=== PATIENT | male | born 1960 | race Caucasian/White ===

== ENCOUNTER 2017-05-10 14:15 | Emergency (ER) | payer OTHER ==
[2017-05-10 14:40] VITALS: BP 149/92; PULSE 82; TEMP 98.7; BMI 32.3
[2017-05-10] MEDS ORDERED: SODIUM CHLORIDE 1,000 ML IV STA (14:56)
--- NOTE | 2017-05-10 14:56 | PDOC ---
History of Present Illness - General History Source: Patient Exam Limitations: No Limitations - History of Present Illness Initial Comments: 05/10/17 15:02 The patient is a 56 year old male, with a significant past medical history of hypothyroidism, who presents to the emergency department with, three days of right sided flank pain. The patient describes his flank pain as waxing and waning and ranking a 10/10 at worse. He reports the pain to worsen when he is laying down. The patient reports taking Advil, with minimal relief. He denies any recent injury. He denies any recent fevers, chills, headache or dizziness. He denies any recent nausea, vomit, diarrhea or constipation. He denies any recent chest pain or shortness of breath. He denies any recent dysuria, frequency, urgency or hematuria. Allergies: NKA Social History: Nonsmoker. Denies EtOH use and recreational drug use. Familial History: Maternal Hodgkins Primary Care Physician: Dr. Ahmet Lucas <Luci Watt - Last Filed: 05/10/17 15:58> <Enrique Martin - Last Filed: 05/10/17 16:50> - General Chief Complaint: Back Pain Stated Complaint: RT SIDED BACK PAIN Time Seen by Provider: 05/10/17 14:49 Past History <Luci Watt - Last Filed: 05/10/17 15:58> - Past Medical History COPD: No Thyroid Disease: Yes (HYPOTHYROIDISM) - Immunization History Td Vaccination: Yes Immunization Up to Date: Yes - Suicide/Smoking/Psychosocial Hx Smoking Status: No Smoking History: Never smoked Have you smoked in the past 12 months: No Number of Cigarettes Smoked Daily: 0 Hx Alcohol Use: No <Enrique Martin - Last Filed: 05/10/17 16:50> - Past Medical History Allergies/Adverse Reactions: Allergies Allergy/AdvReac Type Severity Reaction Status Date / Time No Known Allergies Allergy Verified 05/10/17 14:18 Home Medications: Ambulatory Orders Levothyroxine [Synthroid] 120 mcg PO DAILY 04/23/11 Review of Systems - Review of Systems Able to Perform ROS?: Yes Comments:: 05/10/17 15:02 CONSTITUTIONAL: Absent: fever, no chills, no fatigue EYES: Absent: visual changes ENT: Absent: ear pain, no sore throat CARDIOVASCULAR: Absent: chest pain, no palpitations RESPIRATORY: Absent: cough, no SOB GI: Absent: abdominal pain, no nausea, no vomiting, no constipation, no diarrhea GENITOURINARY: Present: +Right side flank pain. Absent: dysuria, no frequency, no hematuria MUSKULOSKELETAL: Absent: no arthralgia, no myalgia SKIN: Absent: rash NEURO: Absent: headache All Other Systems: Reviewed and Negative <Luci Watt - Last Filed: 05/10/17 15:58> *Physical Exam - Vital Signs Last Vital Signs Temp Pulse Resp BP Pulse Ox 98.7 F 82 18 149/92 96 05/10/17 14:15 05/10/17 14:15 05/10/17 14:15 05/10/17 14:15 05/10/17 14:15 - Physical Exam Comments: 05/10/17 15:58 GENERAL: Well developed, well nourished. Awake and alert. No acute distress. HEENT: Normocephalic, atraumatic. PERRLA, EOMI. No conjunctival pallor. Sclera are non- icteric. Moist mucous membranes. Oropharynx is clear. NECK: Supple. Full ROM. No JVD. Carotid pulses 2+ and symmetric, without bruits. No thyromegaly. No lymphadenopathy. CARDIOVASCULAR: Regular rate and rhythm. No murmurs, rubs, or gallops. Distal pulses are 2+ and symmetric. PULMONARY: No evidence of respiratory distress. Lungs clear to auscultation bilaterally. No wheezing, rales or rhonchi. ABDOMINAL: Soft. Non-tender. Non-distended. No rebound or guarding. No organomegaly. Normoactive bowel sounds. MUSCULOSKELETAL Normal range of motion at all joints. No bony deformities or tenderness. No CVA tenderness. EXTREMITIES: No cyanosis. No clubbing. No edema. No calf tenderness. SKIN: Warm and dry. Normal capillary refill. No rashes. No jaundice. NEUROLOGICAL: Alert, awake, appropriate. Cranial nerves 2-12 intact. No deficits to light touch and temperature in face, upper extremities and lower extremities. No motor deficits in the in face, upper extremities and lower extremities. Normoreflexic in the upper and lower extremities. Normal speech. Toes are down- going bilaterally. Gait is normal without ataxia. PSYCHIATRIC: Cooperative. Good eye contact. Appropriate mood and affect. <Luci Watt - Last Filed: 05/10/17 15:58> - Vital Signs Last Vital Signs Temp Pulse Resp BP Pulse Ox 98.7 F 82 18 149/92 96 05/10/17 14:15 05/10/17 14:15 05/10/17 14:15 05/10/17 14:15 05/10/17 14:15 <Enrique Martin - Last Filed: 05/10/17 16:50> ED Treatment Course - LABORATORY CBC & Chemistry Diagram: 05/10/17 15:15 05/10/17 15:15 <Luci Watt - Last Filed: 05/10/17 15:58> - LABORATORY CBC & Chemistry Diagram: 05/10/17 15:15 05/10/17 15:15 <Enrique Martin - Last Filed: 05/10/17 16:50> Medical Decision Making - Medical Decision Making 05/10/17 15:10 Patient with severe right flank pain, intermittent, since Thursday. 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 History of a kidney stone in the distant past which passed spontaneously. No urinary tract symptoms. History is suggestive of a recurrent renal colic. Abdominal exam is entirely negative. Labs and CT pending. 05/10/17 15:11 05/10/17 16:37 Laboratories with no significant abnormalities, including a normal white count, normal renal function, and clear urine CT studies pending 05/10/17 16:47 CT is negative for kidney stone or other acute abdominal or pelvic disease Patient's pain is much improved after the administration of Toradol. This is likely due to a back strain, muscular or facet joint pain. The patient is advised to rest and avoid strenuous physical activity use heat and prescribed medication, and if no improvement follow-up with multimedia authoring specialist. Referred to Dr. De Jesus. Discharged in no severe pain or other distress to follow-up as directed. <Enrique Martin - Last Filed: 05/10/17 16:50> *DC/Admit/Observation/Transfer - Attestations Scribe Attestion: 05/10/17 15:02 Documentation prepared by Nirvannie Goberdan, acting as bio medical technician for Enrique Fox MD. <Luci Watt - Last Filed: 05/10/17 15:58> - Discharge Dispostion Admit: No <Enrique Martin - Last Filed: 05/10/17 16:50> Diagnosis at time of Disposition: Back strain Qualifiers: Encounter type: initial encounter Qualified Code(s): S39.012A - Strain of muscle, fascia and tendon of lower back, initial encounter - Discharge Dispostion Disposition: HOME Condition at time of disposition: Improved - Referrals Referrals: Javon De Jesus MD [Staff Physician] - - Patient Instructions Printed Discharge Instructions: DI for Back Strain or Sprain Additional Instructions: No evidence of a kidney stone or other significant intra-abdominal or pelvic disease. Most likely this is mechanical back pain due to overuse. Rest, heat, avoid strenuous physical activity until pain resolved. Medication as directed. Consider consulting Back Specialist if pain persists. Also physical therapy may be helpful. - Post Discharge Activity
[2017-05-10] MEDS ORDERED: KETOROLAC TROMETHAMINE 30 MG/1 ML VIAL IVPUSH ONE (14:57)
[2017-05-10] MEDS ORDERED: ONDANSETRON 4 MG/2 ML VIAL IVPB ONE (14:57)
[2017-05-10] MEDS ORDERED: KETOROLAC TROMETHAMINE 30 MG/1 ML VIAL ONE (15:03)
[2017-05-10] MEDS ORDERED: ONDANSETRON 4 MG/2 ML VIAL ONE (15:03)
[2017-05-10 15:29] LABS: BASO % 1.3 % (0-2.0); HEMATOCRIT 44.2 % (35.4-49); HEMOGLOBIN 14.5 GM/dl (11.7-16.9); LYMPH % 29.8 % (8-40); MCH 28.7 pg (25.7-33.7); MCHC 32.8 g/dl (32.0-35.9); MEAN CELL VOLUME 87.4 fl (80-96); MEAN PLT VOLUME 8.9 fl (7.5-11.1); MONO % 7.7 % (3.8-10.2); NEUT % 59.2 % (42.8-82.8); PLATELET COUNT 278 K/MM3 (134-434); RBC 5.05 M/mm3 (4.00-5.60); RDW 12.4 % (11.9-15.9); WHITE BLOOD COUNT 6.6 K/mm3 (4.0-10.8)
[2017-05-10 15:51] LABS: ALK PHOS 73 U/L (32-92); ANION GAP 7 (8-16); BILIRUBIN,TOTAL 0.7 mg/dl (0.2-1.0); BLOOD UREA NITROGEN 14 mg/dl (7-18); CALCIUM 9.1 mg/dl (8.4-10.2); CHLORIDE 101 mmol/L (98-107); CO2 28 mmol/L (22-28); CREATININE 0.9 mg/dl (0.6-1.3); GLUCOSE,RANDOM 95 mg/dl (74-106); POTASSIUM 4.4 mmol/L (3.5-5.1); SGOT/AST 19 U/L (10-42); SGPT/ALT 28 U/L (10-40); SODIUM 136 mmol/L (136-145); TOT PROT 7.8 g/dl (6.4-8.3)
[2017-05-10 16:16] LABS: URINE APPEARANCE Clear; URINE BILIRUBIN Negative (NEGATIVE); URINE BLOOD Negative (NEGATIVE); URINE COLOR YELLOW; URINE GLUCOSE (UA) Negative (NEGATIVE); URINE KETONE Negative (NEGATIVE); URINE LEUK ESTERASE Negative (NEGATIVE); URINE NITRITE Negative (NEGATIVE); URINE PROTEIN Negative (NEGATIVE); URINE UROBILINOGEN 0.2 (0.2-1.0)
== END 2017-05-10 17:05 | disposition home or self-care (01) ==
LOC: FER 14:15
PROC: 3E0333Z Introduction of Anti-inflammatory into Peripheral Vein, Percutaneous Approach (ICD-10-PCS; principal; 2017-05-10)
PROC: 3E033GC Introduction of Other Therapeutic Substance into Peripheral Vein, Percutaneous Approach (ICD-10-PCS; 2017-05-10)
PROC: 3E0337Z Introduction of Electrolytic and Water Balance Substance into Peripheral Vein, Percutaneous Approach (ICD-10-PCS; 2017-05-10)
DX: S39.012A Strain of muscle, fascia and tendon of lower back, initial encounter (principal); X58.XXXA Exposure to other specified factors, initial encounter; Y93.89 Activity, other specified; Y92.9 Unspecified place or not applicable; E03.9 Hypothyroidism, unspecified
CPT/HCPCS: 36415; 74176; 80053; 81003; 85025; 99285-25; J7030

== ENCOUNTER 2019-01-02 20:50 | Emergency (ER) | payer OTHER ==
[2019-01-02 21:06] VITALS: BP 138/97; PULSE 74; TEMP 97.9; BMI 33.3
[2019-01-02] MEDS ORDERED: LIDOCAINE HCL 2% (50ML VIAL) SQ ONE (21:12)
[2019-01-02] MEDS ORDERED: LIDOCAINE HCL 2% (20ML MULTI-DOSE VIAL) NR ONE (21:12)
[2019-01-02] MEDS ORDERED: DIPHTH,PERTUSS(ACELL),TET 0.5 ML DISP.SYRIN IM ONE (21:36)
--- NOTE | 2019-01-02 22:46 | PDOC ---
Documentation entered by Jeannie Pinto SCRIBE, acting as scribe for Simon Reardon MD. Simon Reardon MD: This documentation has been prepared by the scribe, Jeannie Pinto SCRIBE, under my direction and personally reviewed by me in its entirety. I confirm that the documentation accurately reflects all work, treatment, procedures, and medical decision making performed by me. History of Present Illness - General Chief Complaint: Laceration Stated Complaint: LACERATION RIGHT HAND History Source: Patient Exam Limitations: No Limitations - History of Present Illness Initial Comments: 01/02/19 21:14 The patient is a 58-year-old male with a past medical history significant for hypothyroidism, who presents to the emergency department with a laceration to the right hand. 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 Denies numbness or tingling. The patient says his last tetanus shot was in 2010. Past History - Past Medical History Allergies/Adverse Reactions: Allergies Allergy/AdvReac Type Severity Reaction Status Date / Time No Known Allergies Allergy Verified 01/02/19 20:52 Home Medications: Ambulatory Orders Levothyroxine [Synthroid -] 120 mcg PO DAILY 04/23/11 COPD: No Thyroid Disease: Yes (HYPOTHYROIDISM) - Immunization History Td Vaccination: Yes (2010) Immunization Up to Date: Yes - Psycho Social/Smoking Cessation Hx Smoking Status: No Smoking History: Never smoked Have you smoked in the past 12 months: No Number of Cigarettes Smoked Daily: 0 Information on smoking cessation initiated: No Hx Alcohol Use: No Drug/Substance Use Hx: No Review of Systems - Review of Systems Able to Perform ROS?: Yes Comments:: 01/02/19 21:14 Constitutional - Pt denies Fever, Chills, weakness, HEENT: denies vision changes, sore throat Respiratory: Denies cough, sob, hemoptysis Cardiac: denies chest pain, palpitations, lightheadedness, leg swelling Abd/GI: denies abd pain, nausea, vomiting, blood per rectum, melena, diarrhea : denies dysuria, frequency, discharge Musculoskeletal - denies back pain, joint swelling skin - +right hand laceration. denies bruising, erythema, rash neurological: denies headache, numbness, focal weakness, tingling, ataxia, weakness *Physical Exam - Vital Signs Last Vital Signs Temp Pulse Resp BP Pulse Ox 97.9 F 74 16 138/97 97 01/02/19 20:53 01/02/19 20:53 01/02/19 20:53 01/02/19 20:53 01/02/19 20:53 - Physical Exam Comments: 01/02/19 21:15 CONSTITUTIONAL: Well-appearing; well-nourished; in no apparent distress HEAD: Normocephalic; atraumatic EYES: PERRL; EOM intact ENMT: External appears normal EXT: Normal ROM in all four extremities; non-tender to palpation SKIN: +Vertical laceration to the palmar aspect between the 4th and 5th digits, extending to the web space. Warm, dry, no rash Procedures - Laceration/Wound Repair Volar Hand Wound Length: 5.0 to 7.5 cm Wound Explored: clean Wound's Depth, Shape: into muscle Anesthesia: 2% Lidocaine Wound Debrided: minimal Wound Repaired With: Sutures Suture Size/Type: 5:0 Number of Sutures: 8 Sterile Dressing Applied: Yes Medical Decision Making - Medical Decision Making 01/03/19 04:36 lac tetanus reapired analgesia Discharge - Discharge Information Problems reviewed: Yes Clinical Impression/Diagnosis: Laceration Condition: Good Disposition: HOME - Follow up/Referral - Patient Discharge Instructions Patient Printed Discharge Instructions: DI for Laceration Repair Additional Instructions: stitches out - Post Discharge Activity
== END 2019-01-02 21:40 | disposition home or self-care (01) ==
LOC: FER 20:50
PROC: 0HQFXZZ Repair Right Hand Skin, External Approach (ICD-10-PCS; principal; 2019-01-02)
DX: S61.411A Laceration without foreign body of right hand, initial encounter (principal); W31.89XA Contact with other specified machinery, initial encounter; Y93.89 Activity, other specified; Y92.9 Unspecified place or not applicable
CPT/HCPCS: 99281-25

== ENCOUNTER 2020-09-17 20:58 | Emergency (ER) | payer OTHER ==
[2020-09-17 21:10] VITALS: BP 142/93; PULSE 80; TEMP 98.9; BMI 34.5
== END 2020-09-17 21:38 | disposition home or self-care (01) ==
LOC: SUPCPDRO 20:58 → FER 20:58
PROC: 0HQGXZZ Repair Left Hand Skin, External Approach (ICD-10-PCS; principal; 2020-09-17)
DX: S61.012A Laceration without foreign body of left thumb without damage to nail, initial encounter (principal); W01.0XXA Fall on same level from slipping, tripping and stumbling without subsequent striking against object, initial encounter; W26.8XXA Contact with other sharp object(s), not elsewhere classified, initial encounter
CPT/HCPCS: 99282-25

== ENCOUNTER 2021-10-25 20:58 | Emergency (ER) | payer OTHER ==
[2021-10-25 21:10] VITALS: BP 131/95; PULSE 90; RESP 16; TEMP 98.3; BMI 34.5
== END 2021-10-25 21:45 | disposition left against medical advice (07) ==
LOC: FER 20:58
DX: R42 Dizziness and giddiness (principal)
CPT/HCPCS: 99281-25